=== PATIENT | male | born 2000 | race Caucasian/White ===

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

== ENCOUNTER 2020-10-21 11:22 | Emergency (ER) | payer OTHER, SELFPAY ==
[2020-10-21 19:33] LABS: SARS-CoV-2 PCR by NAA Not Detected (NotDetected)
== END 2020-10-21 12:25 | disposition home or self-care (01) ==
LOC: ERS 11:22
DX: M79.10 Myalgia, unspecified site (principal); J02.9 Acute pharyngitis, unspecified; Z20.822 Contact with and (suspected) exposure to COVID-19
CPT/HCPCS: 99283; U0003; U0005

== ENCOUNTER 2021-05-02 15:43 | Emergency (ER) | payer OTHER ==
[2021-05-02] MEDS ORDERED: Ketorolac Tromethamine 30 MG/ML VIAL ONE (17:16)
== END 2021-05-02 17:39 | disposition home or self-care (01) ==
LOC: ERS 15:43
DX: M25.561 Pain in right knee (principal); F17.210 Nicotine dependence, cigarettes, uncomplicated
CPT/HCPCS: 96372; J1885

== ENCOUNTER 2021-09-17 19:08 | Emergency (ER) | payer OTHER, SELFPAY ==
[2021-09-17] MEDS ORDERED: Lorazepam 2 MG/ML VIAL ONE (19:30)
== END 2021-09-17 20:18 | disposition home or self-care (01) ==
LOC: ERS 19:08
DX: F41.9 Anxiety disorder, unspecified (principal); R07.9 Chest pain, unspecified; F17.210 Nicotine dependence, cigarettes, uncomplicated
CPT/HCPCS: 93005; 96374; J2060